=== PATIENT | female | born 1980 | race Caucasian/White ===

== ENCOUNTER 2018-10-26 03:00 | Emergency (ER) | payer MEDICAID, OTHER ==
[~2018-10-26] VITALS: Ht 157.5 cm; Wt 77.2 kg
[2018-10-26 03:07] VITALS: BP 121/79; PULSE 80; RESP 18; Ht 157.5 cm; Wt 77.2 kg
[2018-10-26] MEDS ORDERED: ONDA4TAB14 PO (06:29)
[2018-10-26] MEDS ORDERED: CYCL10TA7 PO (06:29)
[2018-10-26] MEDS ORDERED: IBUP800T48 PO (06:29)
--- NOTE | 2018-10-26 06:34 | ERD ---
ER Documentation Chief Complaint Chief Complaint back pain x 1 year, denies trauma, also c/o nausea HPI Is a 38-year-old female who is complaining of back pain that she has had for a year. It is in her right side of her thoracic spine. No trauma. No bowel or bladder incontinence. No saddle anesthesia. No fever. Occasional nausea. No dysuria hematuria frequency. Motrin helps her with the pain. ROS All systems reviewed and are negative except as per history of present illness. Medications Home Meds Active Scripts Ondansetron (Ondansetron Odt) 4 Mg Tab.rapdis, 4 MG PO Q6H PRN for NAUSEA AND/OR VOMITING, #10 TAB Prov:ELIZABETH GEORGE PA-C 10/26/18 Ibuprofen* (Motrin*) 800 Mg Tab, 800 MG PO Q6H PRN for PAIN AND OR ELEVATED TEMP, #30 TAB Prov:ELIZABETH GEORGE PA-C 10/26/18 Cyclobenzaprine Hcl* (Cyclobenzaprine Hcl*) 10 Mg Tablet, 10 MG PO TID, #15 TAB Prov:ELIZABETH GEORGE PA-C 10/26/18 Allergies Allergies: Coded Allergies: No Known Drug Allergies (Verified Allergy, Unknown, 10/26/18) PMhx/Soc Hx Cardiac Disorders: Yes (HLD) Hx Alcohol Use: No Hx Substance Use: No Hx Tobacco Use: No Smoking Status: Never smoker Physical Exam Vitals Vital Signs Date Temp Pulse Resp B/P (MAP) Pulse Ox O2 O2 Flow FiO2 Time Delivery Rate 10/26/18 97.8 80 18 121/79 98 03:07 (93) Physical Exam Const: No acute distress Head: Atraumatic Eyes: Normal Conjunctiva ENT: Normal External Ears, Nose and Mouth. Neck: Full range of motion. No meningismus. Resp: Clear to auscultation bilaterally Cardio: Regular rate and rhythm, no murmurs Abdomen: Soft nontender, nondistended, no CVA tenderness Back Exam: Compartments: Soft Motor: Normal flexion and extension of bilateral hip/knee/ankle/foot Sensation: Intact to light touch throughout Bones: No midline TTP Results 24 hrs Laboratory Tests Test 10/26/18 06:20 10/26/18 06:22 Bedside Urine pH (LAB) 7.0 Bedside Urine Protein (LAB) Negative Bedside Urine Glucose (UA) Negative Bedside Urine Ketones (LAB) Negative Bedside Urine Blood Negative Bedside Urine Nitrite (LAB) Negative Bedside Urine Leukocyte Esterase (L Negative POC Beta HCG, Qualitative NEGATIVE Procedures/MDM The differential diagnosis includes but is not limited to muscle strain, ligament strain, contusion, arthritis, discogenetic disease, non- musculoskeletal, cauda equina syndrome, cord compression, abscess and others. Urine negative for or infection. Patient discharged with ibuprofen Flexeril and Zofran. Patient counseled regarding my diagnostic impression and care plan. Prior to discharge all questions answered. Pt agrees with treatment plan and understands strict return precautions. Pt is instructed to follow up with primary care provider within 24-48 hours. Precautionary instructions provided including instructions to return to the ER if not improving or for any worsening or changing symptoms or concerns. Departure Diagnosis: Primary Impression: Back pain Condition: Stable Patient Instructions: Back Pain (Acute Or Chronic) Additional Instructions: Llame al doctor MAANA y courtney romel LINDA PARA DENTRO DE 1-2 GIANG.Dgale a la secretaria que nosotros le instruimos hacer esta linda.Avise o llame si cutler condicin se empeora antes de la linda. Regresa aqui si peor o no mejor. ELIZABETH GEORGE PA-C October 26, 2018 06:34
== END 2018-10-26 07:13 | disposition home or self-care (01) ==
LOC: FTE 03:00
DX: M54.6 Pain in thoracic spine (principal); R11.0 Nausea
CPT/HCPCS: 81003; 81025; Z7502; 99283